=== PATIENT | male | born 1935 | race Two or more races ===

== ENCOUNTER 2022-11-17 13:44 | Emergency (ER) | payer OTHER ==
[~2022-11-17] VITALS: Ht 175.3 cm; Wt 86.2 kg
[2022-11-17] MEDS ORDERED: SERTRALINE HCL50 MG PO (14:51)
[2022-11-17] MEDS ORDERED: NAMENDA10 MG PO (14:51)
[2022-11-17] MEDS ORDERED: REMINYL4 MG PO (14:52)
[2022-11-17] MEDS ORDERED: BUSPIRONE HCL10 MG PO (14:53)
== END 2022-11-17 19:28 | disposition left against medical advice (07) ==
LOC: ER 13:44
DX: Z53.21 Procedure and treatment not carried out due to patient leaving prior to being seen by health care provider (principal)